=== PATIENT | female | born 1990 | race Hispanic/Latino ===

== ENCOUNTER 2018-03-18 15:29 | Emergency (ER) | payer SELFPAY | END 2018-03-18 16:09 | disposition home or self-care (01) | LOC: EDH 15:29 | DX: S62.91XG Unspecified fracture of right hand, subsequent encounter for fracture with delayed healing (principal); S01.01XD Laceration without foreign body of scalp, subsequent encounter; X58.XXXD Exposure to other specified factors, subsequent encounter | CPT/HCPCS: 99281 ==